=== PATIENT | female | born 1950 | race Two or more races ===

== ENCOUNTER 2025-03-28 13:38 | Emergency (ER) | payer MEDICARE, OTHER ==
[~2025-03-28] VITALS: Ht 160 cm; Wt 59.9 kg
[2025-03-28 13:45] VITALS: BP 185/81
[2025-03-28 14:31] LABS: PLATELET COUNT (AUTO) 208 K/uL (179-408); RED BLOOD CELL COUNT(AUTO) 4.90 MIL/uL (3.63-4.92); RED CELL DISTRIBUTION WIDTH 13.7 % (12.3-17.7); WHITE BLOOD COUNT (AUTO) 5.6 K/uL (3.8-11.8)
[2025-03-28] MEDS ORDERED: IOHEXOL 350 100 ML INFUS..BTL ONE (14:39)
[2025-03-28 14:44] LABS: CREATININE 0.6 mg/dL (0.6-1.3); SODIUM SERUM 143 mmol/L (136-145); UREA NITROGEN, BLOOD 12 mg/dL (7-18)
[2025-03-28 14:48] LABS: ASPARTATE AMINOTRANSFERASE 23 U/L (15-37); TOTAL PROTEIN, SERUM 8.1 g/dL (6.4-8.2)
[2025-03-28 15:29] LABS: *BILIRUBIN,URIN NEGATIVE (NEGATIVE); *CLARITY,URINE CLEAR (CLEAR); *COLOR,URINE YELLOW (YELLOW); *KETONES,URINE NEGATIVE (NEGATIVE); *PROTEIN,URINE NEGATIVE (NEGATIVE); *UROBILINOGEN,URINE 0.2 E.U./dl (NORMAL); LEUKOCYTE ESTERASE ,URINE NEGATIVE (NEGATIVE); NITRITE, URINE NEGATIVE (NEGATIVE); UGLUCOSE NEGATIVE (NEGATIVE)
[2025-03-28 15:39] LABS: *BLOOD, URINE TRACE (NEGATIVE)
[2025-03-28] MEDS ORDERED: AMOX-430 PO (15:51)
[2025-03-28 16:02] LABS: SQUAMOUS EPITHELIAL CELL,UR FEW /HPF (NONE SEEN)
[2025-03-28 16:09] VITALS: BP 165/68; O2SAT 99
== END 2025-03-28 16:09 | disposition home or self-care (01) ==
LOC: ER 13:42
DX: G45.4 Transient global amnesia (principal); J01.90 Acute sinusitis, unspecified; E03.9 Hypothyroidism, unspecified; E78.5 Hyperlipidemia, unspecified; R07.9 Chest pain, unspecified; I10 Essential (primary) hypertension; Z88.8 Allergy status to other drugs, medicaments and biological substances
CPT/HCPCS: 99285; 70450; 71045; 80076; 80048; 81001; 82962; 85025; 85730; 84484; 36415; 70496; 70498; 93005; Q9967; A4606; A4663